=== PATIENT | female | born 1970 | race Caucasian/White ===

== ENCOUNTER 2023-04-25 11:10 | Outpatient (REF) | payer BC, SELFPAY | END 2023-04-25 11:11 | disposition home or self-care (01) | LOC: HO.10HDL 11:10 | PROVIDERS: Visit Provider Otolaryngology | DX: B37.0 Candidal stomatitis (principal); J30.89 Other allergic rhinitis | CPT/HCPCS: 36415; 87070; 87102 ==

== ENCOUNTER 2023-05-13 13:57 | Outpatient (AMB) | payer BC, SELFPAY ==
[2023-05-13 13:53] VITALS: PULSE 90; TEMP 37; O2SAT 99
--- NOTE | 2023-05-13 13:53 | MHC.OFFVIS ---
Intake Vital Signs 05/13/23 13:53 Weight 140 lb Pulse 90 Pulse Source Pulse Oximeter Temp 98.6 F Temp Source Oral Pulse Oximetry (%) 99 Intake Visit Reasons: reff /yeast Allergies penicillin G Allergy (Unknown, Verified 05/13/23 13:54) ukn HPI reff /yeast HPI Details She presents with some area in throat and tongue cultured as possible yeast. She has no fever or chills or immunodeficiency. [facility] Medical History (Updated 05/19/23 @ 17:24 by Ana Jacobson MD) Painful mouth Review of Systems Const All systems reviewed & are unremarkable except as noted in HPI and below Physical Exam Vital Signs: Last Vital Signs Temp 98.6 F 05/13/23 13:53 Pulse 90 05/13/23 13:53 Pulse Ox 99 05/13/23 13:53 Const General: cooperative Orientation/consciousness: patient oriented x3 HEENT Head: Yes normal to inspection Mouth: Normal oral and palatal mucosa present Eyes General: appearance normal, both eyes and all related structures Pupils: Equal, round and reactive pupils present Resp Effort & Inspection: normal respiratory effort Cardio Rate: regular rate Rhythm: regular rhythm GI Palpation (GI): Soft to palpation and nontender General: Yes no CVA tenderness Back/Spine/Pelvis Back: no CVA tenderness Skin General skin exam: no rashes or lesions noted Neuro General: patient oriented x3 Cranial nerves: Yes CN's II-XII intact bilaterally and Yes Equal, round and reactive pupils present Extrem General: Yes normal to inspection Psych Appearance: grossly normal Assessment & Plan Assessment & Plan (1) Painful mouth: Comment: Nothing remarkable seen. Code(s): K13.79 - Other lesions of oral mucosa Plan: No further treatment. Dont culture mouth for yeast as normal commensal, Coding Level of Care Code New Pt Level 3 (48464) Diagnoses Painful mouth K13.79
== END 2023-05-13 14:23 | disposition home or self-care (01) ==
PROVIDERS: PCP Nurse Practitioner Adult Health; Visit Provider Internal Medicine
DX: K13.79 Other lesions of oral mucosa (principal)
CPT/HCPCS: 99203

== ENCOUNTER → 2023-05-13 13:57 | Outpatient (BNVA) | payer BC, SELFPAY | PROVIDERS: Visit Provider Internal Medicine ==